=== PATIENT | male | born 1965 ===

== ENCOUNTER 2017-01-29 07:00 | Emergency (ER) | payer OTHER ==
[2017-01-29 07:43] VITALS: RESP 16
--- NOTE | 2017-01-29 07:45 | ED PDOC ---
HPI: Headache Time Seen by Provider: 01/29/17 07:11 Chief Complaint (Nursing): Dizziness/Lightheaded Chief Complaint (Provider): Dizziness/Lightheaded History Per: Patient History/Exam Limitations: no limitations Onset/Duration Of Symptoms: Hrs Current Symptoms Are (Timing): Still Present Severity: Mild Preceeding Symptoms: None Associated Symptoms: Nausea, Vomiting Additional Complaint(s): Patient is a 52 year old male who presents to ED accompanied by family for dizziness that began at 0300 today. Patient reports dizziness is associated with nausea and vomiting. Notes he has never had these symptoms before. Dizziness is made worse with walking and moving his head, although currently symptoms have improved. Denies numbness, weakness, headache, abdominal pain, SOB or vision changes. PMD: Denies Past Medical History Reviewed: Historical Data, Nursing Documentation, Vital Signs - Medical History PMH: Hypercholesterolemia - Surgical History Surgical History: No Surg Hx - Family History Family History: States: No Known Family Hx - Living Arrangements Living Arrangements: With Family - Home Medications Home Medications: Ambulatory Orders Medication Instructions Recorded Meclizine [Meclizine*] 25 mg PO Q8 #15 tab 01/29/17 - Allergies Allergies/Adverse Reactions: Allergies Allergy/AdvReac Type Severity Reaction Status Date / Time No Known Allergies Allergy Verified 01/29/17 07:43 Review of Systems ROS Statement: Except As Marked, All Systems Reviewed And Found Negative Cardiovascular: Negative for: Chest Pain, Palpitations, Light Headedness Respiratory: Negative for: Shortness of Breath Gastrointestinal: Positive for: Nausea, Vomiting. Negative for: Abdominal Pain , Diarrhea Musculoskeletal: Negative for: Neck Pain Neurological: Positive for: Dizziness. Negative for: Weakness, Numbness, Headache Physical Exam - Reviewed Nursing Documentation Reviewed: Yes Vital Signs Reviewed: Yes - Physical Exam Appears: Positive for: Non-toxic, No Acute Distress Head Exam: Positive for: ATRAUMATIC Skin: Positive for: Normal Color, Warm Eye Exam: Positive for: Normal appearance, EOMI, PERRL Neck: Positive for: Normal, Painless ROM Cardiovascular/Chest: Positive for: Regular Rate, Rhythm. Negative for: Murmur Respiratory: Positive for: Normal Breath Sounds. Negative for: Respiratory Distress Extremity: Positive for: Normal ROM. Negative for: Pedal Edema, Calf Tenderness Neurologic/Psych: Positive for: Alert, Oriented. Negative for: Motor/Sensory Deficits - Laboratory Results Result Diagrams: 01/29/17 08:01 01/29/17 08:01 - Progress Re-evaluation Time: 09:45 Condition: Re-examined, Improved Medical Decision Making Medical Decision Making: Time: 729 Initial impression: Dizziness r/o central vs peripheral. Vestibular syndrome vs BPP. Less likely central or cerebellar CVA. Initial plan: -- CT-head -- EKG -- BMP -- CBC -- Meclizine PO --reassess CT head no acute findings Scribe Attestation: Documented by Luly Simon acting as a scribe for Huong Gillette MD MD Scribe Attestation: All medical record entries made by the Scribe were at my direction and personally dictated by me. I have reviewed the chart and agree that the record accurately reflects my personal performance of the history, physical exam, medical decision making, and the department course for this patient. I have also personally directed, reviewed, and agree with the discharge instructions and disposition. Disposition - Clinical Impression Clinical Impression: Dizziness - Patient ED Disposition Is Patient to be Admitted: No Doctor Will See Patient In The: Office Counseled Patient/Family Regarding: Studies Performed, Diagnosis, Need For Followup - Disposition Referrals: [facility] [Outside] Disposition: Routine/Home Disposition Time: 09:56 Condition: GOOD Additional Instructions: Return for worsening. Take medications for dizziness. Follow up with your PCP in 2-3 days. Prescriptions: Meclizine [Meclizine*] 25 mg PO Q8 #15 tab Instructions: Vertigo (ED) Print Language: CITIZEN OF [place]
[2017-01-29 08:22] LABS: BASO # 0.1 K/uL (0.0-0.2); BASO % 0.7 % (0.0-2.0); EOS # 0.1 K/uL (0.0-0.7); EOS % 1.7 % (0.0-4.0); HEMATOCRIT 44.8 % (35.0-51.0); LYMPH # 1.2 K/uL (1.0-4.3); LYMPH % 15.6 % (20.0-40.0); MEAN CELL VOLUME 82.9 fl (80.0-94.0); MEAN CORPUSCULAR HGB CONC 33.8 g/dL (33.0-37.0); MEAN PLATELET VOLUME 9.3 fl (7.2-11.7); MONO # 0.6 K/uL (0.0-0.8); MONO % 7.5 % (0.0-10.0); NEUT # 5.8 K/uL (1.8-7.0); NEUT % 74.5 % (50.0-75.0); NRBC % 0.2 % (0.0-0.0); RED CELL DISTRIBUTION WIDTH 14.3 % (11.5-14.5); WHITE BLOOD COUNT 7.8 K/uL (4.8-10.8)
--- NOTE | 2017-01-29 08:29 | CT ---
PROCEDURE: CT HEAD WITHOUT CONTRAST. HISTORY: vertigo COMPARISON: None available. TECHNIQUE: Axial computed tomography images were obtained through the head/brain without intravenous contrast. Radiation dose: Total exam DLP = 774.16 mGy-cm. This CT exam was performed using one or more of the following dose reduction techniques: Automated exposure control, adjustment of the mA and/or kV according to patient size, and/or use of iterative reconstruction technique. FINDINGS: HEMORRHAGE: No intracranial hemorrhage. BRAIN: No mass effect or edema. No atrophy or chronic microvascular ischemic changes. VENTRICLES: Unremarkable. No hydrocephalus. CALVARIUM: Unremarkable. PARANASAL SINUSES: Unremarkable as visualized. No significant inflammatory changes. MASTOID AIR CELLS: Unremarkable as visualized. No inflammatory changes. OTHER FINDINGS: None. IMPRESSION: No intracranial mass, hemorrhage or evidence of acute infarct. Unremarkable examination.
[2017-01-29 08:32] LABS: BLOOD UREA NITROGEN 15 mg/dl (9-20); CALCIUM 9.1 mg/dL (8.4-10.2); CARBON DIOXIDE 24 mmol/L (22-30); CHLORIDE 105 mmol/L (98-107); GFR AFRICAN-AMERICAN > 60; GLUCOSE,RANDOM 122 mg/dL (75-110); POTASSIUM 4.2 MMOL/L (3.6-5.0); SODIUM 141 mmol/l (132-148)
[2017-01-29 11:10] VITALS: BP 122/66; PULSE 64; TEMP 97.7; O2SAT 95
--- NOTE | 2017-01-30 13:44 | CARD ---
APPROVED REPORT EKG Measurement Heart [id number] <Conclusion> Sinus bradycardia Otherwise normal ECG
== END 2017-01-29 10:56 | disposition home or self-care (01) ==
LOC: H.ER 07:00
DX: R42 Dizziness and giddiness (principal); E78.00 Pure hypercholesterolemia, unspecified